=== PATIENT | male | born 1970 | race Native Hawaiian/Other Pacific Islander ===

== ENCOUNTER 2017-10-15 10:50 | Emergency (ER) | payer OTHER ==
[2017-10-15 10:58] VITALS: BMI 24.0
[2017-10-15 11:13] VITALS: O2SAT 97
[2017-10-15] MEDS ORDERED: Tetanus/Diphtheria Toxoids 0.5 ml Syringe IM ONE (11:23)
[2017-10-15] MEDS ORDERED: Tdap Vaccine 0.5 ml Vial (10-64 yrs) IM ONE (11:28)
--- NOTE | 2017-10-15 11:38 | C.PDOC ---
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 Pt reports, slipped on steps, fell down , landed onto Right facial side. Pt denies LOC, syncope, headache, visual changes, focal deficits, drooling, neck pain, CP, SOB, dyspnea, abd. pain, N/V, back pain, denies deformity, weakness, sensory or vascular deficits to B/L UEs and LEs. Ambulatory in ED with stable gait, not in any apparent distress. Time Seen by Provider: 10/15/17 11:17 Chief Complaint (Nursing): Abnormal Skin Integrity History Per: Patient Past Medical History Reviewed: Historical Data, Nursing Documentation, Vital Signs Vital Signs: Last Vital Signs Temp 99.2 F 10/15/17 11:02 Pulse 96 H 10/15/17 11:02 Resp 20 10/15/17 11:02 BP 150/84 10/15/17 11:02 Pulse Ox 97 10/15/17 11:46 - Medical History PMH: No Chronic Diseases Family History: States: No Known Family Hx - Social History Hx Tobacco Use: No Hx Alcohol Use: Yes Hx Substance Use: No - Immunization History Hx Tetanus Toxoid Vaccination: No Hx Influenza Vaccination: No Hx Pneumococcal Vaccination: No Review Of Systems Except As Marked, All Systems Reviewed And Found Negative. Constitutional: Negative for: Fever, Chills Eyes: Positive for: Other (Right orbital swelling, bruising). Negative for: Pain, Vision Change ENT: Negative for: Ear Pain, Ear Discharge, Nose Pain, Nose Discharge Cardiovascular: Negative for: Chest Pain, Palpitations, Light Headedness Respiratory: Negative for: Cough, Shortness of Breath, Wheezing Gastrointestinal: Negative for: Nausea, Vomiting, Abdominal Pain, Diarrhea Genitourinary: Negative for: Dysuria, Incontinence Musculoskeletal: Negative for: Neck Pain, Back Pain Skin: Positive for: Bruising Neurological: Negative for: Weakness, Numbness, Altered Mental Status, Headache , Dizziness Physical Exam - Physical Exam Appears: Well, Non-toxic, No Acute Distress Skin: Normal Color, Warm, Dry, Other (Right lateral orbit superficial laceration 2cm length, linear. NO palpable deformity, no wound FB.) Head: Atraumatic, Normacephalic Eye(s): bilateral: PERRL, EOMI (no pain or limitation on extraocular movement B/ L), right: Other (mild edema, trace ecchymoses lateral aspectRightobit, mild tenderness over lateroinferior aspect Right orbit) Ear(s): Bilateral: Normal Nose: No Flaring, No Discharge, No Deformity, No Tenderness Oral Mucosa: Moist, No Drooling, No Trismus Tongue: Normal Appearing Lips: Normal Appearing Teeth: No Loose, No Avulsed Throat: No Drooling Neck: Normal ROM, Trachea Midline, No Midline Cervical Tenderness, No Paracervical Tenderness, No Step Off Deformity, Supple Chest: Symmetrical, No Deformity, No Tenderness Cardiovascular: Rhythm Regular, No Murmur, No JVD Respiratory: No Decreased Breath Sounds, No Accessory Muscle Use, No Stridor, No Wheezing Gastrointestinal/Abdominal: Soft, No Tenderness, No Distention, No Guarding, No Rebound Back: No CVA Tenderness, No Vertebral Tenderness, No Paraspinal Tenderness Extremity: Normal ROM, No Tenderness, No Deformity, No Swelling Extremity: Bilateral: Atraumatic Neurological/Psych: Oriented x3, Normal Speech, Normal Motor, Normal Sensation, Normal Reflexes ED Course And Treatment O2 Sat by Pulse Oximetry: 97 Pulse Ox Interpretation: Normal - CT Scan/US Right orbit CT w/o contrast Other Rad Studies (CT/US): Radiology Report Reviewed CT/US Interpretation: Dictator : Rayshawn Dumont MD. Litigation Paralegal : Telephone Clerk : Rayshawn Dumont MD. Approver2 : Report Date : 10/15/2017 14:04 :13. My Comment : . Date of service: 10/15/2017. PROCEDURE: CT ORBITS WITHOUT CONTRAST. HISTORY: injury. COMPARISON: None available. TECHNIQUE: Axial CT images of the orbits were obtained. Coronal and sagittal reformats were generated. Radiation dose: Total exam DLP = mGy-cm. This CT exam was performed using one or more of the following dose reduction techniques: Automated exposure control, adjustment of the mA and/or kV according to patient size, and/or use of iterative reconstruction technique. FINDINGS: RIGHT ORBIT : RIGHT BONY ORBIT: Normal. RIGHT INTRAORBITAL STRUCTURES: Globe: Normal. Extraocular muscles: Normal. Post septal space: Normal. Optic Nerve: Normal. Lacrimal Apparatus: Normal. RIGHT PRESEPTAL SOFT TISSUES: Moderate diffuse preseptal soft tissue edema is seen surrounding the right orbit with the supraorbital soft tissues least affected. No retained radiodense foreign body or emphysema soft tissue changes are identified. LEFT ORBIT: LEFT BONY ORBIT: Normal. LEFT INTRAORBITAL STRUCTURES: Globe: Normal. Extraocular muscles: Normal. Post septal space: Normal. Optic Nerve: Normal. . Lacrimal Apparatus : Normal. LEFT PRESEPTAL SOFT TISSUES: Normal. OTHER: Incidental bilateral maxillary and ethmoid mucosal inflammatory changes identified. IMPRESSION: Right periorbital soft tissue edema appears moderate with remainder the examination unremarkable cranial fracture. Intraorbital contents appear unremarkable bilaterally. . Progress Note: On re-evaluation, ptis afebrile, hemodynamicaly stable. Non- toxic. Ambulatory in ED with stable gait. Head: AT/NC. Right orbite: edema, trace ecchymoses to lateral aspect with small superficial laceration. NO pain or limitation on extraocular movement. No conjunctival injection. No palpabledeformity periorbital. VA: R 20/40, L20/35, B/L 20/35 w/o correction. ENT: no acute findings. Neck: Supple, (-) midline tenderness. Lungs: CTA B/L, BS equal B/L. FAROM of B/L UEs and LEs. Neuorlogicaly intact. CT Right orbit Imaging review and appears without acute abnormalities. Pt has clinical finidngs c/w head injury, Right orbital contusion. Pt advised OBS 48 hrs for any sign of head injury-return to ED at any time if any worsening or new changes. Advised on wound care. ref. to f/u with PMD, Opht in 1-2 days for re- eavl. Laceration - Laceration Repair Right periorbital Wound Length (In cm): 2cm Description Of Wound: Linear Wound Cleansed With: Betadine Wound Examination: Irrigated With Saline, No FB With Wound Exploration Wound Closure: Steri Strips, Skin Glue Wound Complexity: Simple Disposition Counseled Patient/Family Regarding: Studies Performed, Diagnosis, Need For Followup - Disposition Referrals: Sohail Lara [Staff Provider] - Disposition: HOME/ ROUTINE Disposition Time: 14:00 Condition: STABLE Additional Instructions: OBSERVE 48 HOURS FOR ANY SIGN OF HEAD INJURY-INTRACTABLE HEADACHE, VOMITING, VISUAL CHANGES, FOCAL DEFICITS-RETURN TO ED IMMEDIATELY FOR RE-EVALUATION. TYLENOL NEED FOR HEADACHE KEEP WOUND DRY FOR 4-5 DAYS FOLLOW UP WITH OPHTHALMOLOGY NEED FOR FURTHER EVALUATION AND TREATMENT IN 2- 3 DAYS Instructions: Closed Head Injury, Eye Contusion (DC), Laceration Repair With Glue (DC) Forms: [employer] (Japanese) - Clinical Impression Clinical Impression: Head injury, Eye contusion, Laceration of periorbital area
--- NOTE | 2017-10-15 14:05 | CT ---
Date of service: 10/15/2017 PROCEDURE: CT ORBITS WITHOUT CONTRAST. HISTORY: injury COMPARISON: None available. TECHNIQUE: Axial CT images of the orbits were obtained. Coronal and sagittal reformats were generated. Radiation dose: Total exam DLP = mGy-cm. This CT exam was performed using one or more of the following dose reduction techniques: Automated exposure control, adjustment of the mA and/or kV according to patient size, and/or use of iterative reconstruction technique. FINDINGS: RIGHT ORBIT: RIGHT BONY ORBIT: Normal. RIGHT INTRAORBITAL STRUCTURES: Globe: Normal. Extraocular muscles: Normal. Post septal space: Normal. Optic Nerve: Normal. Lacrimal Apparatus: Normal. RIGHT PRESEPTAL SOFT TISSUES: Moderate diffuse preseptal soft tissue edema is seen surrounding the right orbit with the supraorbital soft tissues least affected. No retained radiodense foreign body or emphysema soft tissue changes are identified. LEFT ORBIT: LEFT BONY ORBIT: Normal. LEFT INTRAORBITAL STRUCTURES: Globe: Normal. Extraocular muscles: Normal. Post septal space: Normal Optic Nerve: Normal. . Lacrimal Apparatus: Normal. LEFT PRESEPTAL SOFT TISSUES: Normal. OTHER: Incidental bilateral maxillary and ethmoid mucosal inflammatory changes identified. IMPRESSION: Right periorbital soft tissue edema appears moderate with remainder the examination unremarkable cranial fracture. Intraorbital contents appear unremarkable bilaterally.
[2017-10-15 14:29] VITALS: BP 142/85; PULSE 81; RESP 16; TEMP 97.8
== END 2017-10-15 14:28 | disposition home or self-care (01) ==
LOC: C.ER 10:50
DX: S01.111A Laceration without foreign body of right eyelid and periocular area, initial encounter (principal); W10.9XXA Fall (on) (from) unspecified stairs and steps, initial encounter; Y92.9 Unspecified place or not applicable; Z23 Encounter for immunization